=== PATIENT | female | born 1960 | race Caucasian/White ===

== ENCOUNTER → 2019-10-13 08:35 | Outpatient (CLI) | payer OTHER, SELFPAY ==
--- NOTE | 2019-10-13 13:17 | NEURO ---
NCS and/or EMG Patient Report Ordering Doctor: Karthik Hester DATE OF SERVICE: 10/13/19 Layla Bennett is a 58-year-old female presents for electrodiagnostic testing of the upper limbs. She reports progressively worsening numbness in both hands over the past 10 years. Electrodiagnostic findings: Right median motor nerve demonstrates prolonged distal latency with normal amplitude and reduced conduction velocity. Left median motor nerve demonstrates prolonged distal latency with normal amplitude and conduction velocity. There is an approximately 50% drop in median motor conduction on the right side compared to the left. Ulnar motor response is normal bilaterally. Median sensory latency at the wrist is prolonged bilaterally. Prolonged median F wave on the right side. On needle EMG, 1+ fibrillations are noted in the left first dorsal interosseous. Although the muscles tested showed no evidence of denervation with normal motor unit action potentials. Electrodiagnostic impression: This is an abnormal study in the upper limbs. 1. Electrodiagnostic findings demonstrate bilateral median mononeuropathy. This is consistent with a moderate left carpal tunnel syndrome and an advanced right carpal tunnel syndrome 2. No electrodiagnostic evidence is noted for cubital tunnel syndrome. 3. No electrodiagnostic evidence noted for cervical radiculopathy. If there are any further questions, please do not hesitate to contact me.
== END ==
PROVIDERS: PCP Student in an Organized Health Care Education/Training Program; Referring Provider Orthopaedic Surgery; Visit Provider Orthopaedic Surgery
DX: G56.01 Carpal tunnel syndrome, right upper limb (principal)
CPT/HCPCS: 95886; 95912

== ENCOUNTER → 2019-12-03 | Outpatient (CLI) | payer OTHER, SELFPAY ==
--- NOTE | 2019-12-03 16:03 | EKG12_ITS ---
Test Reason : PRE OP Blood Pressure : / mmHG Vent. Rate : 064 BPM Atrial Rate : 064 BPM P-R Int : 150 ms QRS Dur : 090 ms QT Int : 400 ms P-R-T Axes : 008 006 008 degrees QTc Int : 412 ms Normal sinus rhythm Inferior infarct , age undetermined Abnormal ECG Confirmed by BRENNA CONTRERAS, RANJEET ([id number]), acquisitions editor COLLINS HESTER ([id number]) on 12/06/2019 1:07:33 PM Referred By: Ruddy Gee Confirmed By:RANJEET CEJA MD
[2019-12-03 17:40] LABS: Hematocrit 38.6 % (37-47); Hemoglobin 13.1 g/dL (12.0-15.0); Mean Corp Hgb Conc 33.9 g/dL (32-36); Mean Corpuscular Volume 94.1 fL (81-99); Mean Platelet Vol. 10.5 fl (6.2-12.0); Platelet Count 323 K/mm3 (150-450); RBC Distribution Width CV 12.2 % (11.6-14.6); RBC Distribution Width SD 42.2 fl (35.1-43.9); White Blood Count 6.6 K/mm3 (4.4-11.0)
[2019-12-03 18:31] LABS: Anion Gap 5 (5-15); BUN 21 mg/dL (7-18); BUN/Creat Ratio 27.8 RATIO (10-20); Calcium,Total 9.1 mg/dL (8.5-10.1); Chloride 110 mmol/L (98-107); Creatinine, Serum 0.76 mg/dL (0.55-1.02); EST Glomerular Filtration Rate 83 mL/min (>60); Est Glom Filt Rate - Afr Amer 100 mL/min (>60); Glucose 101 mg/dL (74-106); Potassium 3.3 mmol/L (3.5-5.1); Sodium Level 143 mmol/L (136-145)
== END | disposition home or self-care (01) ==
LOC: LAB 16:01
PROVIDERS: PCP Student in an Organized Health Care Education/Training Program; Referring Provider Physician Assistant; Visit Provider Physician Assistant
DX: Z01.818 Encounter for other preprocedural examination (principal)
CPT/HCPCS: 36415; 80048; 85027; 93005

== ENCOUNTER 2021-04-12 11:51 | Emergency (ER) | payer OTHER, SELFPAY ==
[2021-04-12 11:52] VITALS: BP 171/90; PULSE 67; RESP 20; TEMP 36.3; O2SAT 99; BMI 39.3
[2021-04-12 12:02] VITALS: BP 171/90; PULSE 67; RESP 20; TEMP 36.3; O2SAT 99
--- NOTE | 2021-04-12 12:24 | RAD_ITS ---
STUDY: X-RAY CHEST REASON FOR EXAM: Female, 60 years old. covid, sob TECHNIQUE: Single AP portable view of the chest. COMPARISON: None. FINDINGS: The lungs are clear and expanded. There is no demonstrated pleural abnormality. Normal size heart. Normal mediastinum and kenia. Normal visualized pulmonary arteries. Normal visualized aortic arch and descending thoracic aorta. There are diffuse degenerative changes of the visualized thoracic spine. Normal visualized ribs, clavicles, and shoulders. There is no demonstrated abnormality of the visualized soft tissue structures of the upper abdomen. RAD/Chest 1 View (Portable) IMPRESSION: No acute abnormality is seen. Electronically Signed: Marc Zabala MD at 13:38 EDT , Service support ,
--- NOTE | 2021-04-12 12:25 | EDS_ITS ---
HPI History of Present Illness Chief Complaint: Shortness of Breath Associated Symptoms cough Chest Pain: Positive for None Narrative Narrative: Patient has had Covid symptoms now for 11 days, she tested +9 days ago, gradually getting worse and now a little short of breath. She saw her doctor several days ago, when she started feeling worse she was put on a azithromycin and prednisone for unknown reasons. She does not use oxygen at home and has not needed it. She has been watching her pulse oximetry at home and it has never been below 94% mostly higher 90s, as now it is 99% on room air. Her shortness of breath is not been severe. She had the Covid test at urgent care, she has history of hypertension and was not told that she was a candidate for monoclonal antibody infusion therapy. She was told today to come and get checked for blood clots. She has no history of DVT or PE, no unilateral leg pain or swelling, she has been mobile without recent hospitalization for any reason or surgery. [facility] Medical History (Updated 04/12/21 @ 14:[address] Fabrizio Mcgee MD) HTN (hypertension) Home Medications azithromycin 250 mg PO DAILY 04/12/21 [History Last Taken Unknown] methylprednisolone 4 mg PO DAILY 04/12/21 [History Last Taken Unknown] Allergy/AdvReac Type Severity Reaction Status Date / Time Unable to Assess Allergy Verified 04/12/21 11:55 Social History Smoking Status: Never smoker ROS [facility] ED Constitutional Constitutional ED: Reports body ache(s), chills, fatigue, fever(s), headache(s) and malaise Eyes Eyes: Denies change in vision or diplopia ENT ENT ED: Denies rhinorrhea or sore throat Cardiovascular Cardiovascular: Denies chest pain or palpitations Respiratory/Chest Respiratory/Chest: Reports cough, dyspnea and dyspnea on exertion Gastrointestinal Gastrointestinal: Reports diarrhea; Denies abdominal pain, nausea or vomiting Genitourinary Genitourinary ED: Denies dysuria or hematuria Musculoskeletal Musculoskeletal: Denies back pain or neck pain Integumentary Denies abscess or rash Neurologic Neurologic: Reports headache(s); Denies paresthesias or weakness Psychiatric Psychiatric: Denies anxiety or suicidal thoughts EXAM Physical Exam Const Vital Signs: 04/12/21 11:52 04/12/21 12:02 Temperature 97.4 F L 97.4 F L Temperature Source Oral Oral Pulse Rate 67 67 Respiratory Rate 20 H 20 H Blood Pressure 171/90 H 171/90 H Blood Pressure Mean 117 117 Pulse Ox 99 99 Oxygen Delivery Method Room Air Room Air Positive well nourished and well developed Constitutional Narrative: Malaised-appearing, no distress General Appearance ED: well developed and NAD HEENT Reports moist mucous membranes normocephalic and atraumatic Eyes PERRL and EOMs intact bilaterally Neck full ROM and supple Resp normal respiratory effort and clear to auscultation bilaterally Cardio regular rate, regular rhythm and no murmurs Rate: Negative for tachycardic GI non-tender and non-distended Auscultation: normoactive bowel sounds Palpation: soft Back/Spine no CVA tenderness General Back: other FROM Extremity normal to inspection and no calf tenderness General Extremety ED: Negative for edema, pulses abnormal or tenderness General Extremity: Negative for edema or pulses abnormal Neuro oriented x3, CN's II-XII intact bilaterally and no sensory deficits noted Sensorium / Orientation: awake and alert Motor Exam: strength 5/5 throughout Skin no rashes or lesions noted and no wounds MDM MDM MDM Narrative Medical decision making narrative: My recommendations are chest x-ray and supportive care, she is no longer a candidate for monoclonal antibody infusion therapy since she is beyond 10 days out from the onset of symptoms. I do not think she has likely a PE since her pulse ox is 99% on room air and she has no pleuritic chest discomfort. She really wants to make sure she does not have a PE because she knows someone who of Covid with a pulmonary embolus. She understands the risk of kidney injury which of course I will try to minimize. She wants evaluated for it so initially D-dimer was obtained along with other labs and chest x-ray confirming Covid pneumonitis. CT angiography also confirms this and there is no pulmonary embolus. Patient was reassured, advised to continue watching her pulse oximetry, other methods of supportive care are reasonable, does not meet any criteria for steroids at this time although she is already on them, nor admission. Patient is comfortable with overall plan of staying isolated at home and supportive care and watching her pulse ox. Lab Data Attestation: I reviewed the patient's lab results. Labs: Laboratory Results - last 24 hr 04/12/21 04/12/21 04/12/21 12:40 12:40 12:40 WBC 10.1 RBC 4.55 Hgb 14.4 Hct 42.5 MCV 93.4 MCH 31.6 MCHC 33.9 RDW Std Deviation 42.8 RDW Coeff of Donis 12.4 Plt Count 355 MPV 9.8 Immature Gran % (Auto) 0.600 Neut % (Auto) 76.8 H Lymph % (Auto) 14.8 L Bennett % (Auto) 7.5 Eos % (Auto) 0.0 Baso % (Auto) 0.3 Absolute Neuts (auto) 7.8 H Absolute Lymphs (auto) 1.50 Nucleated RBC % 0 D-Dimer Quant (PE/DVT) 1.12 H* Sodium 139 Potassium 3.8 Chloride 109 H Carbon Dioxide 24.0 Anion Gap 6 BUN 16 Creatinine 0.78 Estim Creat Clear Calc 59.90 Est GFR (MDRD) Af Amer 97 Est GFR (MDRD) Non-Af 80 BUN/Creatinine Ratio 20.6 H Glucose 112 H Calcium 9.2 Troponin I High Sens < 3 L Radiography Diagnostic Testing: Radiology Impression Chest X-Ray 04/12/21 12:24 IMPRESSION: No acute abnormality is seen. Electronically Signed: Marc Zabala MD at 13:38 EDT , Service support , Chest CTA 04/12/21 13:09 IMPRESSION: No evidence of pulmonary embolism. Multiple rounded alveolar infiltrates in the peripheral distribution involving both lungs suggestive of Covid pneumonitis. Electronically Signed: Marc Zabala MD at 13:50 EDT , Service support , Discharge Plan Triage Chief Complaint: Shortness of Breath ED Provider: Fabrizio Mcgee Dx/Rx/DC Orders Clinical Impression: Pneumonia due to COVID-19 virus Instructions: Coronavirus Disease 2019 (COVID-19): Caring for Yourself or Others Prescriptions: No Action azithromycin 250 mg tablet 250 mg PO DAILY RF: 0 methylprednisolone 4 mg tablets,dose pack 4 mg PO DAILY RF: 0 Primary Care Provider: Bobby Rojo Referrals: Bobby Rojo, DO [Primary Care Provider] - As Needed Activity Restrictions/Additional Instructions: Try to get a home portable pulse oximeter and closely watch her oxygen levels periodically. If you stay below 90% for more than a minute or so, and/or you are feeling like your breathing is getting worse, return to the emergency department for further evaluation. Disposition Disposition: Home, Self Care
[2021-04-12 12:47] LABS: Absolute Neutrophil Count 7.8 X10^3/uL (2.0-7.7); Basophil# 0.03 X10^3/uL; Basophil% 0.3 % (0-1); Hematocrit 42.5 % (37-47); Hemoglobin 14.4 g/dL (12.0-15.0); Lymphocyte % 14.8 % (19-41); Mean Corp Hgb Conc 33.9 g/dL (32-36); Mean Corpuscular Hgb 31.6 pg (27.0-32.0); Mean Corpuscular Volume 93.4 fL (81-99); Mean Platelet Vol. 9.8 fl (6.2-12.0); Monocyte# 0.76 X10^3/uL; Monocyte% 7.5 % (0-10); NRBC Flagged by Analyzer 0 % (0-5); Neutrophil # 7.77 X10^3/uL (2.7-7.7); Neutrophil % 76.8 % (47-70); Platelet Count 355 K/mm3 (150-450); RBC Distribution Width CV 12.4 % (11.6-14.6); RBC Distribution Width SD 42.8 fl (35.1-43.9); Red Blood Count 4.55 M/mm3 (4.2-5.4); White Blood Count 10.1 K/mm3 (4.4-11.0)
[2021-04-12 13:02] LABS: D-Dimer Quantitative (DVT/PE) 1.12 FEU/ug/m (0.27-0.49)
[2021-04-12 13:05] LABS: Anion Gap 6 (5-15); BUN 16 mg/dL (7-18); BUN/Creat Ratio 20.6 RATIO (10-20); Calcium,Total 9.2 mg/dL (8.5-10.1); Chloride 109 mmol/L (98-107); Creatinine, Serum 0.78 mg/dL (0.55-1.02); EST Glomerular Filtration Rate 80 mL/min (>60); Est Glom Filt Rate - Afr Amer 97 mL/min (>60); Glucose 112 mg/dL (74-106); Potassium 3.8 mmol/L (3.5-5.1); Sodium Level 139 mmol/L (136-145); Troponin-I HS < 3 pg/mL (3.0-54.0)
--- NOTE | 2021-04-12 13:09 | CT_ITS ---
STUDY: CTA CHEST REASON FOR EXAM: Female, 60 years old. covid, chest pain/sob, elevated d-dimer RADIATION DOSAGE (If Supplied By Facility): CTDIvol = ( 13.66 ) mGy, DLP = ( 465.63 ) mGycm TECHNIQUE: The examination was performed with the intravenous administration of IV 100mL Isovue-370. Post-processing of the angiographic images was performed, with multiplanar reformation and 3D reconstruction. Individualized dose optimization techniques were used for this CT. COMPARISON: None. FINDINGS: Normal enhancement of the main pulmonary artery and right and left pulmonary arteries. Normal enhancement of the bilateral peripheral pulmonary arteries. There is no demonstrated pulmonary embolism. Normal thoracic aorta and visualized great vessels. There is no demonstrated aortic dissection. Normal heart and pericardium. Normal mediastinum. Normal hilar regions. Normal visualized trachea and bronchi. The lungs are well expanded. There are multiple patchy rounded alveolar infiltrates in the peripheral aspects of both upper lobes. This is suggestive of early pneumonitis associated with Covid. Normal pleura. Normal chest wall structures. Normal osseous structures. Small sliding hiatal hernia. CT/CTA Chest W/WO Contrast IMPRESSION: No evidence of pulmonary embolism. Multiple rounded alveolar infiltrates in the peripheral distribution involving both lungs suggestive of Covid pneumonitis. Electronically Signed: Marc Zabala MD at 13:50 EDT , Service support ,
[2021-04-12 15:28] VITALS: BP 162/57; PULSE 82; RESP 15; O2SAT 98
== END 2021-04-12 15:29 | disposition home or self-care (01) ==
PROVIDERS: Emergency Provider Emergency Medicine; PCP Student in an Organized Health Care Education/Training Program
DX: U07.1 COVID-19 (principal); J12.82 Pneumonia due to coronavirus disease 2019; I10 Essential (primary) hypertension; Z79.52 Long term (current) use of systemic steroids; Z79.2 Long term (current) use of antibiotics
CPT/HCPCS: 71045; 71275; 80048; 84484; 85025; 85379; 99283; Q9967

== ENCOUNTER 2021-06-25 10:58 | Emergency (ER) | payer OTHER, SELFPAY ==
[2021-06-25 10:59] VITALS: BP 186/95; PULSE 66; RESP 18; TEMP 35.9; O2SAT 98; BMI 38.6
--- NOTE | 2021-06-25 12:15 | ED.VIS.GI ---
HPI HPI - GI History of Present Illness Chief Complaint: GI Bleed Informant: patient Abdominal Pain/Flank Pain Onset: - (No pain, just diarrhea with blood) Worsened by: Nothing Relieved by: Nothing Nausea/Vomiting/Emesis GI Symptom: Negative for Nausea and Vomiting Diarrhea/Melena/Hematochezia GI Symptom: Positive for Diarrhea and Hematochezia; Negative for Melena Onset: Days (2 days of bloody diarrhea) Stool Quality: Positive for Watery Severity: Moderate Associated Symptoms Associated Symptoms: Negative for Dysuria, Frequency, Hematuria and Urgency Narrative Narrative: Patient had Covid in March and ever since she has had diarrhea 5-10 bouts per day that has been watery, for the past 3 days it has also been bloody. She has felt tired since March that is no different. She denies any syncope or presyncopal symptoms or orthostatic symptoms. She has contracted a cold in the last 2 or 3 days that multiple grandchildren have as well, she was in contact with him, she has been hoarse, nonproductive cough, and a mildly sore throat without fevers, chills, or dyspnea. The grandchildren have not been tested for Covid, their mother is a nurse here at the hospital with there has been lots of inpatient Covid. She has had no testing on the diarrhea so far. She was not vaccinated against Covid. When she called her doctor's office regarding the symptoms she was sent to the ER for further evaluation. [facility] Medical History HTN (hypertension) Home Medications albuterol sulfate [Ventolin HFA] 1 - 2 puff INHALATION Q4H PRN PRN #1 inhaler 04/12/21 [Rx Last Taken Unknown] azithromycin 250 mg PO DAILY 04/12/21 [History Last Taken Unknown] methylprednisolone 4 mg PO DAILY 04/12/21 [History Last Taken Unknown] Allergy/AdvReac Type Severity Reaction Status Date / Time No Known Allergies Allergy Verified 06/25/21 10:58 Social History Smoking Status: Never smoker ROS ROS ED Constitutional Constitutional ED: Reports anorexia, fatigue and other Details: Anorexia due to food making the diarrhea worse so she is trying to avoid food but drinking fluids well. ; Denies chills or fever(s) Eyes Eyes: Denies change in vision or diplopia ENT ENT ED: Reports hoarseness, nasal congestion, rhinorrhea and sore throat; Denies loss taste/smell Cardiovascular Cardiovascular: Denies chest pain or palpitations Respiratory/Chest Respiratory/Chest: Reports cough; Denies dyspnea Gastrointestinal Gastrointestinal: Reports diarrhea; Denies abdominal pain, nausea or vomiting Genitourinary Genitourinary ED: Denies dysuria or hematuria Musculoskeletal Musculoskeletal: Denies back pain or neck pain Integumentary Denies abscess or rash Neurologic Neurologic: Denies headache(s), paresthesias or weakness Psychiatric Psychiatric: Denies anxiety or suicidal thoughts EXAM Physical Exam Const Vital Signs: 06/25/21 10:59 Temperature 96.7 F L Temperature Source Temporal Pulse Rate 66 Respiratory Rate 18 Blood Pressure 186/95 H Blood Pressure Mean 125 Pulse Ox 98 Oxygen Delivery Method Room Air Positive well nourished and well developed General Appearance ED: well developed and NAD HEENT Reports moist mucous membranes normocephalic and atraumatic Eyes PERRL and EOMs intact bilaterally Neck full ROM and supple Resp normal respiratory effort and clear to auscultation bilaterally Cardio regular rate, regular rhythm and no murmurs GI non-tender and non-distended Auscultation: normoactive bowel sounds Palpation: soft Back/Spine no CVA tenderness General Back: other FROM Extremity normal to inspection General Extremety ED: Negative for edema, pulses abnormal or tenderness General Extremity: Negative for edema or pulses abnormal Neuro oriented x3, CN's II-XII intact bilaterally and no sensory deficits noted Sensorium / Orientation: awake and alert Motor Exam: strength 5/5 throughout Skin no rashes or lesions noted and no wounds MDM MDM MDM Narrative Medical decision making narrative: Patient's labs are all normal. She was given a liter of IV fluid, she did not develop any abdominal pain or have any further bleeding here in emergency department. She was given water and crackers to eat/drink, and she still had no diarrhea to provide for testing. She does not want to wait any longer and would prefer to go home and do the testing as an outpatient which I am okay with. Hemoglobin is stable, hemodynamics are stable except she is actually hypertensive, she tested negative for Covid. At this time I would hold off on antidiarrheals until we rule out bacterial etiologies now that she has rectal bleeding with it, and if her enteric panel and C. difficile are negative she may then likely safely do antidiarrheals. 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 I would also recommend close outpatient follow-up with her doctor regarding the testing and gastroenterology regarding the bleeding, she may need sigmoidoscopy/colonoscopy in follow-up. We discussed reasons to return she is comfortable with the plan. Lab Data Attestation: I reviewed the patient's lab results. Labs: Laboratory Results - last 24 hr 06/25/21 06/25/21 12:35 12:35 WBC 7.7 RBC 4.14 L Hgb 13.1 Hct 40.1 MCV 96.9 MCH 31.6 MCHC 32.7 RDW Std Deviation 45.6 H RDW Coeff of Donis 12.6 Plt Count 433 MPV 9.6 Immature Gran % (Auto) 0.400 Neut % (Auto) 61.6 Lymph % (Auto) 21.9 [place] % (Auto) 11.0 H Eos % (Auto) 4.5 Baso % (Auto) 0.6 Absolute Neuts (auto) 4.7 Absolute Lymphs (auto) 1.69 Nucleated RBC % 0 Sodium 140 Potassium 3.9 Chloride 104 Carbon Dioxide 29.0 Anion Gap 7 BUN 11 Creatinine 0.78 Estim Creat Clear Calc 59.90 Est GFR (MDRD) Af Amer 97 Est GFR (MDRD) Non-Af 80 BUN/Creatinine Ratio 14.2 Glucose 93 Calcium 9.8 Total Bilirubin 0.30 AST 12 L ALT 15 Alkaline Phosphatase 83 Total Protein 8.2 Albumin 3.1 L Globulin 5.1 H Albumin/Globulin Ratio 0.6 L Discharge Plan Triage Chief Complaint: GI Bleed ED Provider: Fabrizio Mcgee Dx/Rx/DC Orders Clinical Impression: Bloody diarrhea, 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 Fabrizio Mcgee ENTERIC PATHOGEN PANEL STOOL (Routine) Timeframe: 2 Days Facility: [facility] - Location: Laboratory Ordered By: Dr. Fabrizio Mcgee Primary Care Provider: Bobby Rojo Referrals: Bobby Rojo DO [Primary Care Provider] - (2-5 days, after providing outpt stool specimen for testing) Andrea Watt DO [STAFF PHYSICIAN] - (call for appt) Disposition Disposition: Home, Self Care
[2021-06-25 12:48] LABS: Absolute Lymphocyte Count 1.69 X10^3/uL (0.83-4.51); Absolute Neutrophil Count 4.7 X10^3/uL (2.0-7.7); Basophil# 0.05 X10^3/uL; Basophil% 0.6 % (0-1); Eosinophil# 0.35 X10^3/uL; Eosinophils% 4.5 % (0-5); Hematocrit 40.1 % (37-47); Hemoglobin 13.1 g/dL (12.0-15.0); Lymphocyte # 1.69 X10^3/ul (0.83-4.51); Lymphocyte % 21.9 % (19-41); Mean Corp Hgb Conc 32.7 g/dL (32-36); Mean Corpuscular Hgb 31.6 pg (27.0-32.0); Mean Corpuscular Volume 96.9 fL (81-99); Mean Platelet Vol. 9.6 fl (6.2-12.0); Monocyte# 0.85 X10^3/uL; NRBC Flagged by Analyzer 0 % (0-5); Neutrophil # 4.73 X10^3/uL (2.7-7.7); Neutrophil % 61.6 % (47-70); Platelet Count 433 K/mm3 (150-450); RBC Distribution Width CV 12.6 % (11.6-14.6); RBC Distribution Width SD 45.6 fl (35.1-43.9); Red Blood Count 4.14 M/mm3 (4.2-5.4); White Blood Count 7.7 K/mm3 (4.4-11.0)
[2021-06-25 13:15] LABS: ALB/GLOB Ratio 0.6 RATIO (0.9-2.4); AST(SGOT) 12 U/L (15-37); Alanine Aminotransfer ALT/SGPT 15 U/L (13-56); Albumin, Serum 3.1 g/dL (3.2-5.0); Alkaline Phosphatase 83 U/L (45-117); Anion Gap 7 (5-15); BUN 11 mg/dL (7-18); BUN/Creat Ratio 14.2 RATIO (10-20); Calcium,Total 9.8 mg/dL (8.5-10.1); Chloride 104 mmol/L (98-107); Creatinine, Serum 0.78 mg/dL (0.55-1.02); EST Glomerular Filtration Rate 80 mL/min (>60); Est Glom Filt Rate - Afr Amer 97 mL/min (>60); Globulin 5.1 g/dL (2.2-4.2); Glucose 93 mg/dL (74-106); Potassium 3.9 mmol/L (3.5-5.1); Protein, Total 8.2 g/dL (6.4-8.2); Sodium Level 140 mmol/L (136-145)
== END 2021-06-25 15:31 | disposition home or self-care (01) ==
PROVIDERS: Emergency Provider Emergency Medicine; PCP Student in an Organized Health Care Education/Training Program
DX: A08.8 Other specified intestinal infections (principal); R53.82 Chronic fatigue, unspecified; U09.9 Post COVID-19 condition, unspecified; I10 Essential (primary) hypertension; Z79.899 Other long term (current) drug therapy
CPT/HCPCS: 80053; 85025; 87426; 87493; 87506; 99283; A4216

== ENCOUNTER 2021-09-19 07:24 | Day surgery (SDC) | payer OTHER, SELFPAY ==
[2021-09-19] VITALS (7 sets, daily range): BP systolic 100–159; BP diastolic 64–85; PULSE 60–74; RESP 16–18; TEMP 35.9–36.6; O2SAT 96–99; BMI 36.6
[2021-09-19] MEDS: Lactated Ringers 1,000 ML 15 ML IV (07:50)
--- NOTE | 2021-09-19 08:30 | COLBX_PTH ---
PATIENT: ARMANI LAINEZ LOC: EN U#:[id number] AGE/SX: 60/F ROOM: RE09/19/[address]: Dr. Andrea Watt DO : 1960 BED: DIS: 09/19/2021 SPEC #: [id number] RECD: 09/19/21 09:45 STATUS: PIPPA CORBIN #: [id number] CALIN: 09/19/21 08:[address]: Andrea Watt DEPT: SURGICAL PATHOLOGY RECD BY: Ismael Ruiz ENTERED: 09/19/21 11:04 SP TYPE: COLON BX OTHR DR: Dr. Bobby Rojo DO Tissues: A - Duodenum, NOS B - Esophagus, NOS C - Ileum, NOS D - COLON BIOPSY Procedures: Special Stain Group II Surgery Specimen Level IV Alcian Blue/PAS (control) HEADER OPERATION: Colonoscopy, EGD ([facility] [place] PRE-OP DIAGNOSIS: Diarrhea TISSUE SUBMITTED: A ? Duodenum biopsy, B ? Random esophagus biopsy, C ? Terminal ileum biopsy, D ? Random colonic biopsy MICROSCOPIC DIAGNOSIS A. Duodenum, biopsy: Fragments of small intestinal mucosa with mild congestion. B. Esophagus, random biopsy: Fragments of squamous epithelium with minimal chronic inflammation and congestion. 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 C. Terminal ileum, biopsy: Fragments of small intestinal mucosa, no pathologic diagnosis. D. Colon, random biopsy: Moderate chronic active colitis. See microscopic description and comment. COMMENT B. Alcian blue/PAS stain with matched control is used in the evaluation of the specimen. Increased number of eosinophils consistent with eosinophilic esophagitis are not seen. D. Correlation with clinical, endoscopic findings and appropriate follow up are necessary. MICROSCOPIC DESCRIPTION Slides are reviewed. D. The specimen shows fragments of colonic mucosa with moderate acute and chronic inflammatory cell infiltrates in the lamina propria, lymphoid aggregates, mild glandular distortion, cryptitis and crypt abscesses. Granulomas are not seen. No evidence of dysplasia. GROSS DESCRIPTION A - Received in fixative is one container labeled with the patient's name and designated duodenum biopsy. The specimen consists of multiple irregular fragments of light byers soft tissue that in aggregate measure 1 x 0.2 x 0.1 cm. The specimen is totally submitted in one cassette. B - Received in fixative is one container labeled with the patient's name and designated random esophagus biopsy. The specimen consists of multiple irregular fragments of light byers soft tissue that in aggregate measure 0.8 x 0.2 x 0.1 cm. The specimen is totally submitted in one cassette. C - Received in fixative is one container labeled with the patient's name and designated terminal ileum biopsy. The specimen consists of multiple irregular fragments of light byers soft tissue that in aggregate measure 1 x 0.5 x 0.1 cm. The specimen is totally submitted in one cassette. D - Received in fixative is one container labeled with the patient's name and designated random colonic biopsy. The specimen consists of multiple irregular fragments of light byers soft tissue that in aggregate measure 1.3 x 1 x 0.1 cm. The specimen is totally submitted in one cassette. / SJ:rg 09/19/2021 TC:2 CPT: 34594 x4, [id number]
--- NOTE | 2021-09-19 08:42 | HP.PCM_ITS ---
History and Physical Date of Admission: 09/19/21 60 F who presents to the office today for evaluation of the area with urgency. Recently she has been developing worsening lower GI bleeding with diarrhea. She has no family history of inflammatory bowel disease. She has no other rheumatologic diseases. Previously she she had episodes of constipation. None none none Seen in [facility] ED 06/25/21 for diarrhea. Onset March following COVID infection. 5-10 episodes a day of watery diarrhea that has included blood in the last 3 days. Provided with IVF. Discouraged use of antidiarrheals until stool testing could be done to r/o bacterial infection. COVID testing negative. Stool testing performed 06/25/21 with negative findings. Prior to COVID she was having issues with constipation and required apple juice and prunes to promote BM. Following COVID infection with onset of watery diarrhea she stopped her bowel regimen. Reports several BM each hour with urgency with incontinence. Left sided cramping prior to BM, denies pain. Blood has stopped since ED visit but is now orange colored. Reports being healthy otherwise. ROS Const Constitutional: Positive for fatigue and weight change Gastro GI: Positive for change in bowel habits, constipation, cramping, diarrhea and nausea/dyspepsia Musc Musculoskeletal: Positive for muscle cramps Endo Endocrine: Positive for fatigue and weight change Exam Const General: cooperative and comfortable Nutritional Appearance: average body habitus and well nourished HENMT Head: normal to inspection Ears: hearing grossly normal bilaterally Nose: external nose normal Face and sinus: normal facial exam Mouth: oral mucosae normal Throat: posterior oropharynx normal Eyes General: appearance normal, both eyes and all related structures Neck Neck: normal visual inspection Chest Chest palpation & inspection: normal inspection of the chest and normal palpation of entire chest wall Resp Effort & Inspection: normal respiratory effort Auscultation: Bilateral: Clear to Auscultation Cardio Palpation: normal PMI Rate: regular rate Rhythm: regular rhythm GI Inspection: normal to inspection Auscultation: normal bowel sounds Percussion: normal to percussion Palpation: no hepatosplenomegaly Skin General: no rashes or lesions noted Neuro General: patient alert Extrem General: normal to inspection Psych Affect: normal affect Quality Reporting Tobacco Screening ([facility] 138) Smoking Status: Never smoker Assessment and Plan Assessment and Plan (1) Diarrhea: Status: Acute Plan - Dr. Mendez Friend, DO: The differential diagnosis for diarrhea could be postinfectious diarrhea. Also the diagnosis with the lower GI bleeding could be ischemic colitis. This could also be upper GI bleed with rapid transit. We discussed the possibilities of inflammatory bowel disease. I am hesitant to start her on steroids at this time due to recent Covid infection. Her stool studies were negative which is good. However fecal lactoferrin was not done. I will give her Lomotil 2 tabs in morning 2 tabs at night. I discussed with her the possibility of constipation. If she gets constipated she is to call me and I can make adjustments. She will undergo an upper lower endoscopy the she was explained alternatives, risk, benefits including not withstanding bleeding, infection, sepsis, perforation, need for emergent surgery . She will have an ASA of 1. Plan Details Other Medications: New: diphenoxylate-atropine 2.5-0.025 mg (Lomotil) 2 tabs PO BID 14 days PRN 56 tabs 0RF diarrhea I have re-examined the patient. There are no clinical changes since date of exam.
--- NOTE | 2021-09-19 09:06 | OP.CCLET_ITS ---
04/17/2022 Bobby Rojo [address] [place] [address] Re : Upper GI endoscopy procedure for Layla Bennett Dear Dr. Rojo This procedure was performed on Sunday, September 19, 2021. My impressions and recommendations are as follows: Impressions : - Esophageal mucosal changes consistent with eosinophilic esophagitis. Biopsied. - Normal stomach. - Erythematous duodenopathy. Biopsied. Recommendations : - Written discharge instructions were provided to the patient. - The signs and symptoms of potential delayed complications were discussed with the patient. - Patient has a contact number available for emergencies. - Return to normal activities tomorrow. - Resume previous diet. - Continue present medications. - Await pathology results. - Await pathology results. My findings are described in the full procedure note, which is enclosed. If I can be of further assistance, please feel free to contact me at . Sincerely, Andrea Watt, 09/19/2021 9:05:47 AM This report has been signed electronically.
--- NOTE | 2021-09-19 09:06 | OP.EGD_ITS ---
Patient Name: Layla Bennett Procedure Date: 09/19/2021 8:46 AM Date of : 1960 Age: 60 Procedure: Upper GI endoscopy Indications: Epigastric abdominal pain Providers: Andrea Watt DO Referring MD: Andrea Watt DO Medicines: See the Anesthesia note for documentation of the administered medications Patient Profile: This is a 60 year old female. Refer to note in patient chart for documentation of history and physical. Patient has symptoms of acute abdominal cramping and chronic abdominal cramping. Complications: No immediate complications. Procedure: Pre-Anesthesia Assessment: - Prior to the procedure, a History and Physical was performed, and patient medications and allergies were reviewed. The patient is competent. The risks and benefits of the procedure and the sedation options and risks were discussed with the patient. All questions were answered and informed consent was obtained. Patient identification and proposed procedure were verified by the physician in the pre-procedure area. Mental Status Examination: alert and oriented. Airway Examination: normal oropharyngeal airway and neck mobility. Respiratory Examination: clear to auscultation. CV Examination: normal. Prophylactic Antibiotics: The patient does not require prophylactic antibiotics. Prior Anticoagulants: The patient has taken no previous anticoagulant or antiplatelet agents. After reviewing the risks and benefits, the patient was deemed in satisfactory condition to undergo the procedure. The anesthesia plan was to use moderate sedation / analgesia (conscious sedation). Immediately prior to administration of medications, the patient was re-assessed for adequacy to receive sedatives. The heart rate, respiratory rate, oxygen saturations, blood pressure, adequacy of pulmonary ventilation, and response to care were monitored throughout the procedure. The physical status of the patient was re-assessed after the procedure. After obtaining informed consent, the endoscope was passed under direct vision. Throughout the procedure, the patient's blood pressure, pulse, and oxygen saturations were monitored continuously. The pediatric colonoscope was introduced through the mouth, and advanced to the second part of duodenum. The upper GI endoscopy was accomplished without difficulty. The patient tolerated the procedure well. Moderate Sedation: Moderate (conscious) sedation was administered by the endoscopy nurse and supervised by the endoscopist. The following parameters were monitored: oxygen saturation, heart rate, blood pressure, and response to care. Total physician intraservice time was 15 minutes. Scope In: 8:56:48 AM Scope Out: 9:02:27 AM Total Procedure Duration Time 0 hours 5 minutes 39 seconds Findings: Mucosal changes including ringed esophagus were found in the middle third of the esophagus. Esophageal findings were graded using the Eosinophilic Esophagitis Endoscopic Reference Score (EoE-EREFS) as: Edema Grade 0 Normal (distinct vascular markings), Rings Grade 2 Moderate (distinct rings that do not occlude passage of diagnostic 8-10 mm endoscope), Exudates Grade 0 None (no white lesions seen), Furrows Grade 0 None (no vertical lines seen) and Stricture none (no stricture found). Biopsies were obtained from the proximal and distal esophagus with cold forceps for histology of suspected eosinophilic esophagitis. Verification of patient identification for the specimen was done. Estimated blood loss was minimal. The entire examined stomach was normal. Patchy mildly erythematous mucosa without active bleeding and with no stigmata of bleeding was found in the first portion of the duodenum. Biopsies were taken with a cold forceps for histology. Estimated blood loss: none. Impression: - Esophageal mucosal changes consistent with eosinophilic esophagitis. Biopsied. - Normal stomach. - Erythematous duodenopathy. Biopsied. Recommendation: - Written discharge instructions were provided to the patient. - The signs and symptoms of potential delayed complications were discussed with the patient. - Patient has a contact number available for emergencies. - Return to normal activities tomorrow. - Resume previous diet. - Continue present medications. - Await pathology results. - Await pathology results. Procedure Code(s): --- Professional --- 35458, Esophagogastroduodenoscopy, flexible, transoral; with biopsy, single or multiple 06661, 59, Moderate sedation services provided by the same physician or other qualified health care team coordinator scheduler performing the diagnostic or therapeutic service that the sedation supports, requiring the presence of an independent trained observer to assist in the monitoring of the patient's level of consciousness and physiological status; initial 15 minutes of intraservice time, patient age 5 years or older CPT copyright 2017 [employer]. All rights reserved. The codes documented in this report are preliminary and upon ocean clam boat captain review may be revised to meet current compliance requirements. Andrea Watt DO 09/19/2021 9:05:47 AM This report has been signed electronically. Number of Addenda: 1 Note Initiated On: 09/19/2021 8:46 AM Addendum Number: 1 Addendum Date: 04/17/2022 6:40:54 AM MAC was used as sedation for this procedure. Andrea Watt, 04/17/2022 6:41:00 AM This report has been signed electronically.
--- NOTE | 2021-09-19 09:36 | OP.COLON_ITS ---
Patient Name: Layla Bennett Procedure Date: 09/19/2021 9:03 AM Date of : 1960 Age: 60 Procedure: Colonoscopy Indications: Clinically significant diarrhea of unexplained origin Providers: Andrea Watt DO Referring MD: Andrea Watt DO Medicines: See the Anesthesia note for documentation of the administered medications Patient Profile: This is a 60 year old female. Refer to note in patient chart for documentation of history and physical. Patient has symptoms of acute abdominal cramping and chronic abdominal cramping. Last Colonoscopy: date unknown. Unable to locate last colonoscopy report. Complications: No immediate complications. Procedure: Pre-Anesthesia Assessment: - Prior to the procedure, a History and Physical was performed, and patient medications and allergies were reviewed. The patient is competent. The risks and benefits of the procedure and the sedation options and risks were discussed with the patient. All questions were answered and informed consent was obtained. Patient identification and proposed procedure were verified by the physician in the pre-procedure area. Mental Status Examination: alert and oriented. Airway Examination: normal oropharyngeal airway and neck mobility. Respiratory Examination: clear to auscultation. CV Examination: normal. Prophylactic Antibiotics: The patient does not require prophylactic antibiotics. Prior Anticoagulants: The patient has taken no previous anticoagulant or antiplatelet agents. After reviewing the risks and benefits, the patient was deemed in satisfactory condition to undergo the procedure. The anesthesia plan was to use moderate sedation / analgesia (conscious sedation). Immediately prior to administration of medications, the patient was re-assessed for adequacy to receive sedatives. The heart rate, respiratory rate, oxygen saturations, blood pressure, adequacy of pulmonary ventilation, and response to care were monitored throughout the procedure. The physical status of the patient was re-assessed after the procedure. After I obtained informed consent, the scope was passed under direct vision. Throughout the procedure, the patient's blood pressure, pulse, and oxygen saturations were monitored continuously. The pediatric colonoscope was introduced through the anus and advanced to the terminal ileum. The colonoscopy was performed without difficulty. The patient tolerated the procedure well. The quality of the bowel preparation was good. Moderate Sedation: Moderate (conscious) sedation was administered by the endoscopy nurse and supervised by the endoscopist. The patient's oxygen saturation, heart rate, blood pressure and response to care were monitored. Total physician intraservice time was 15 minutes. Scope In: 9:07:39 AM Scope Withdrawal Time 0 hours 12 minutes 7 seconds Scope Out: 9:27:35 AM Total Procedure Duration Time 0 hours 19 minutes 56 seconds Findings: The perianal and digital rectal examinations were normal. A patchy area of moderately erythematous mucosa was found in the recto-sigmoid colon, in the sigmoid colon, in the descending colon, at the splenic flexure and at the hepatic flexure. Biopsies were taken with a cold forceps for histology. Verification of patient identification for the specimen was done. Estimated blood loss was minimal. A patchy area of the terminal ileum was congested. Verification of patient identification for the specimen was done. Estimated blood loss was minimal. A few small-mouthed diverticula were found in the recto-sigmoid colon and sigmoid colon. Impression: - Erythematous mucosa in the recto-sigmoid colon, in the sigmoid colon, in the descending colon, at the splenic flexure and at the hepatic flexure. Biopsied. - Congested mucosa in the terminal ileum. - Diverticulosis in the recto-sigmoid colon and in the sigmoid colon. Recommendation: - Discharge patient to home. - Resume previous diet. - Continue present medications. - Await pathology results. - Repeat colonoscopy in 5 years for surveillance based on pathology results. - Return to GI office. Procedure Code(s): --- Professional --- 25742, Colonoscopy, flexible; with biopsy, single or multiple 30403, 59, Moderate sedation services provided by the same physician or other qualified health patient care technician instructor performing the diagnostic or therapeutic service that the sedation supports, requiring the presence of an independent trained observer to assist in the monitoring of the patient's level of consciousness and physiological status; initial 15 minutes of intraservice time, patient age 5 years or older CPT copyright 2017 [employer]. All rights reserved. The codes documented in this report are preliminary and upon hospital coder review may be revised to meet current compliance requirements. Andrea Watt DO 09/19/2021 9:35:24 AM This report has been signed electronically. Number of Addenda: 1 Note Initiated On: 09/19/2021 9:03 AM Addendum Number: 1 Addendum Date: 04/17/2022 6:41:09 AM MAC was used as sedation for this procedure. Andrea Watt DO 04/17/2022 6:41:12 AM This report has been signed electronically.
--- NOTE | 2021-09-19 09:37 | OP.CCLET_ITS ---
04/17/2022 Bobby Rojo [address] [place] [address] Re : Colonoscopy procedure for Layla Bennett Dear Dr. Rojo This procedure was performed on Sunday, September 19, 2021. My impressions and recommendations are as follows: Impressions : - Erythematous mucosa in the recto-sigmoid colon, in the sigmoid colon, in the descending colon, at the splenic flexure and at the hepatic flexure. Biopsied. - Congested mucosa in the terminal ileum. - Diverticulosis in the recto-sigmoid colon and in the sigmoid colon. Recommendations : - Discharge patient to home. - Resume previous diet. - Continue present medications. - Await pathology results. - Repeat colonoscopy in 5 years for surveillance based on pathology results. - Return to GI office. My findings are described in the full procedure note, which is enclosed. If I can be of further assistance, please feel free to contact me at . Sincerely, Andrea Watt DO 09/19/2021 9:35:24 AM This report has been signed electronically.
== END 2021-09-19 23:59 | disposition home or self-care (01) ==
LOC: EN 07:26 → AC 07:26
PROVIDERS: PCP Student in an Organized Health Care Education/Training Program; Referring Provider Internal Medicine Gastroenterology; Visit Provider Internal Medicine Gastroenterology
PROC: 0DJD8ZZ Inspection of Lower Intestinal Tract, Via Natural or Artificial Opening Endoscopic (ICD-10-PCS; CPT 45378; principal; 2021-09-19 08:25)
DX: K20.0 Eosinophilic esophagitis (principal); K57.30 Diverticulosis of large intestine without perforation or abscess without bleeding; K63.89 Other specified diseases of intestine; R19.7 Diarrhea, unspecified; R10.13 Epigastric pain; Z86.16 Personal history of COVID-19
CPT/HCPCS: 45380; 43239; 87426; 88305; 88313; C9803; J7120; J2405

== ENCOUNTER 2022-10-14 08:54 | Day surgery (SDC) | payer OTHER, SELFPAY ==
[2022-10-14] VITALS (8 sets, daily range): BP systolic 80–151; BP diastolic 47–85; PULSE 52–68; RESP 15–18; TEMP 36.1–36.6; O2SAT 92–100; BMI 41.9
[2022-10-14] MEDS: Lactated Ringers 1,000 ML 15 ML IV (09:27)
--- NOTE | 2022-10-14 09:55 | PCM.HP.STD ---
[facility] - General General Date of Admission: 10/14/22 Date of Service: 10/14/22 Chief Complaint: Dysphagia HPI Narrative ARMANI LAINEZ, is a 61 F who presents for evaluation of eosinophilic esophagitis. She had a previous endoscopy that showed multiple esophageal rings, furrowing and other mucosal changes consistent with eosinophilic esophagitis. Biopsies that showed eosinophilic esophagitis and some focal intestinal metaplasia in the distal esophagus. She comes back in for evaluation of dysphagia. This is mostly with solids. She is not have any abdominal pain. She denied any cramping. She not have any chest pain or shortness of breath. [facility] Medical History (Updated 10/14/22 @ 09:[address] Mendez Friend, DO) Arthritis COVID Diarrhea History of GI bleed History of IBS History of steroid therapy HTN (hypertension) Injury of head and neck Migraine headache Non-smoker Post-menopausal Wears glasses Home Medications bisacodyl 5 mg tablet,delayed release 5 mg PO ONCE #4 tabs 07/11/21 [Rx Last Taken Unknown] propranolol 20 mg tablet 20 mg PO BID 07/11/21 [History Last Taken 10/14/22 06:00] albuterol sulfate 90 mcg/actuation aerosol inhaler 1 - 2 puff inhalation PRN PRN SOB 08/07/21 [History Last Taken Unknown] multivitamin 1 tab PO DAILY 08/07/21 [History Last Taken Unknown] Allergy/AdvReac Type Severity Reaction Status Date / Time No Known Allergies Allergy Verified 10/14/22 09:08 Surgical History History of carpal tunnel surgery of right wrist Hx of colonoscopy Social History Smoking Status: Never smoker ROS Review of Systems ROS Unobtainable: other Constitutional Constitutional: Denies fatigue, fever(s), poor appetite, weight gain or weight loss ENT HEENT: Denies mouth lesions Cardiovascular Cardiovascular: Denies abdominal bloating, abdominal edema or abdominal pain Respiratory/Chest Respiratory/Chest: Denies change in mental status, change in phlegm color, chest congestion or chest tightness Gastrointestinal Gastrointestinal: Denies belching, bloating, change in bowel habits, change in stool character, chewing difficulty, coffee ground emesis, constipation, cramping, diarrhea, dyspepsia, dysphagia, early satiety, excessive flatus, fecal incontinence, heartburn, hematemesis, hematochezia, hemorrhoids, loose stools, melena, nausea, odynophagia, rectal bleeding, tenesmus, vomiting or weight changes Genitourinary Genitourinary: Denies abdominal discomfort, burning urination or itching Musculoskeletal Musculoskeletal: Reports as per HPI; Denies muscle weakness or myalgias Integumentary Integumentary: Denies jaundice Neurologic Neurologic: Denies lack of coordination or weakness Psychiatric Psychiatric: Denies confusion, depression, memory loss, mood swings, paranoia or suicidal ideation Endocrine Endocrinology: Denies systems reviewed and no addt'l complaints, except as documented Hematologic/Lymphatic Hematologic/Lymphatic: Denies anemia, easy bleeding, easy bruising or lymphadenopathy Allergic/Immunologic Allergic/Immunologic: Denies systems reviewed and no addt'l complaints, except as documented Vital Signs Vital Signs Vital Signs: 10/14/22 09:09 10/14/22 09:09 Temperature 97.0 F L Temperature Source Temporal Pulse Rate 64 Respiratory Rate 16 Respiratory Pattern Normal Blood Pressure 151/85 H Blood Pressure Mean 107 Blood Pressure Source Monitor Blood Pressure Position Semi-Fowlers Blood Pressure Location Left Arm Pulse Ox 100 Oxygen Delivery Method Room Air Weight Weight: 229 lb 4.492 oz Body Mass Index (BMI) 41.9 Physical Exam Const alert, oriented x3, no apparent distress, healthy appearing and well nourished General Appearance: cooperative, comfortable, well kempt and well developed Orientation / Consciousness: awake and oriented to person HEENT Head and Scalp: normocephalic and atraumatic Face and Sinus: normal facial exam Mouth: oral and palatal mucosa normal Eyes General Eye: normal appearance of both eyes Neck full ROM Lymph Lymphatic: no lymphadenopathy noted Chest inspection of chest normal Resp normal respiratory effort and no use of accessory muscles Cardio regular rate and regular rhythm GI normal to inspection, nondistended, normoactive bowel sounds, soft to palpation, non-tender, non-distended and no masses Auscultation: normoactive bowel sounds Palpation: soft Percussion: normal to percussion Rectal Exam: visual inspection normal and normal sphincter tone no CVA tenderness Back/Spine no CVA tenderness and normal ROM Extremity normal to inspection Peripheral Pulses: Yes pulses 2+ throughout Skin no rashes or lesions noted General Skin Exam: no breakdown, elasticity normal and turgor normal Neuro oriented x3 Motor Exam: strength 5/5 throughout Psych mental status grossly normal Appearance: grossly normal Attitude: calm Activity / Motor Behavior: appropriate eye contact Speech: normal speech Thought Process: normal thought process Thought Content: normal thought content Attention / Concentration: attention grossly intact Memory / Cognition: memory grossly intact Insight: insight good Judgement: judgement good Assessment & Plan Assessment/Plan (1) Barretts esophagus: (2) Eosinophilic esophagitis: PLAN: Plan She will undergo evaluation of the upper GI tract. She was explained alternatives, risk, benefits including not withstanding bleeding, infection, sepsis, perforation, need for emergent urgent . She have an ASA of 2.
--- NOTE | 2022-10-14 10:00 | COLBX_PTH ---
PATIENT: ARMANI LAINEZ LOC: EN U#:[id number] AGE/SX: 61/F ROOM: RE10/14/[address]: Dr. Andrea Watt DO : 1960 BED: DIS: 10/14/2022 SPEC #: [id number] RECD: 10/14/22 11:35 STATUS: PIPPA CORBIN #: [id number] CALIN: 10/14/22 10:[address]: Andrea Watt DEPT: SURGICAL PATHOLOGY RECD BY: Ismael Ruiz ENTERED: 10/14/22 12:05 SP TYPE: COLON BX OTHR DR: Dr. Bobby Rojo DO Tissues: A - Esophagus, NOS B - Ileum, NOS C - COLON BIOPSY Procedures: Special Stain Group II Surgery Specimen Level IV Alcian Blue/PAS (control) HEADER OPERATION: Colonoscopy, EGD (MAC), biopsy PRE-OP DIAGNOSIS: Pat?s esophagus, eosinophilic esophagitis TISSUE SUBMITTED: A ? Distal esophagus biopsy, B ? Terminal ileum biopsy, C ? Random colonic biopsy MICROSCOPIC DIAGNOSIS A. Distal esophagus, biopsy: Gastroesophageal junctional mucosa with mild chronic inflammation. No evidence of goblet cell metaplasia. See comment. B. Terminal ileum, biopsy: No pathologic change. C. Colon, random biopsy: Chronic active colitis pattern of injury. See comment. AM:[email or web address] 10/15/2022 COMMENT A. Alcian blue/PAS stain with matched control supports the above diagnosis. C. Sections show glandular distortion, expansion of lamina propria by inflammatory cells, cryptitis and focal crypt abscesses. Fissuring ulcers and transmural lymphoid aggregates are not identified. Clinical correlation is suggested. MICROSCOPIC DESCRIPTION Slides are reviewed. GROSS DESCRIPTION A - Received in fixative is one container labeled with the patient's name and designated distal esophagus biopsy. The specimen consists of multiple irregular fragments of light byers soft tissue that in aggregate measure 1.0 x 0.3 x 0.1 cm. The specimen is totally submitted in one cassette. B -Received in fixative is one container labeled with the patient's name and designated terminal ileum biopsy. The specimen consists of two irregular fragments of light byers soft tissue that in aggregate measure 0.6 x 0.3 x 0.1 cm. The specimen is totally submitted in one cassette. C - Received in fixative is one container labeled with the patient's name and designated random colonic biopsy. The specimen consists of multiple irregular fragments of light byers soft tissue that in aggregate measure 2.5 x 0.3 x 0.1 cm. The specimen is totally submitted in one cassette. / SJ:[email or web address] 10/14/2022 TC:2 CPT: 43415 x3, 68370
--- NOTE | 2022-10-14 10:29 | OP.COLON_ITS ---
Patient Name: Layla Bennett Procedure Date: 10/14/2022 10:10 AM Date of : 1960 Age: 61 Procedure: Colonoscopy Indications: Left-sided chronic ulcerative colitis Providers: Andrea Watt DO Referring MD: Andrea Watt DO Medicines: Monitored Anesthesia Care Patient Profile: This is a 61 year old female. Refer to note in patient chart for documentation of history and physical. Last Colonoscopy: within the past 3 years. Complications: No immediate complications. Procedure: Pre-Anesthesia Assessment: - Prior to the procedure, a History and Physical was performed, and patient medications and allergies were reviewed. The patient is competent. The risks and benefits of the procedure and the sedation options and risks were discussed with the patient. All questions were answered and informed consent was obtained. Patient identification and proposed procedure were verified by the physician. Mental Status Examination: normal. Prophylactic Antibiotics: The patient does not require prophylactic antibiotics. Prior Anticoagulants: The patient has taken no previous anticoagulant or antiplatelet agents. After reviewing the risks and benefits, the patient was deemed in satisfactory condition to undergo the procedure. The anesthesia plan was to use monitored anesthesia care (MAC). Immediately prior to administration of medications, the patient was re-assessed for adequacy to receive sedatives. The heart rate, respiratory rate, oxygen saturations, blood pressure, adequacy of pulmonary ventilation, and response to care were monitored throughout the procedure. The physical status of the patient was re-assessed after the procedure. After I obtained informed consent, the scope was passed under direct vision. Throughout the procedure, the patient's blood pressure, pulse, and oxygen saturations were monitored continuously. The Colonoscope was introduced through the anus and advanced to the terminal ileum. The colonoscopy was performed without difficulty. The patient tolerated the procedure well. The quality of the bowel preparation was good. Scope In: 10:12:48 AM Scope Withdrawal Time 0 hours 8 minutes 16 seconds Scope Out: 10:24:13 AM Total Procedure Duration Time 0 hours 11 minutes 25 seconds Findings: The perianal and digital rectal examinations were normal. Inflammation characterized by congestion (edema), erosions, friability and loss of vascularity was found in a continuous and circumferential pattern from the rectum to the transverse colon. The hepatic flexure, the ascending colon and the cecum were spared. This was mild in severity, and when compared to previous examinations, the findings are unchanged. Biopsies were taken with a cold forceps for histology. Verification of patient identification for the specimen was done. Estimated blood loss was minimal. The terminal ileum appeared normal. Biopsies were taken with a cold forceps for histology. Verification of patient identification for the specimen was done. Estimated blood loss was minimal. Impression: - Colitis. Inflammation was found from the rectum to the transverse colon. This was mild in severity, unchanged compared to previous examinations. Biopsied. - The examined portion of the ileum was normal. Biopsied. Recommendation: - Discharge patient to home. - Resume previous diet. - Continue present medications. - Await pathology results. - Repeat colonoscopy in 1 year for surveillance. Procedure Code(s): --- Professional --- 57912, Colonoscopy, flexible; with biopsy, single or multiple CPT copyright 2017 [employer]. All rights reserved. The codes documented in this report are preliminary and upon drier transfer car operator review may be revised to meet current compliance requirements. Andrea Watt DO 10/14/2022 10:29:25 AM This report has been signed electronically. Number of Addenda: 0 Note Initiated On: 10/14/2022 10:10 AM
--- NOTE | 2022-10-14 10:30 | OP.CCLET_ITS ---
10/14/2022 Bobby Rojo [address] [place] [address] Re : Colonoscopy procedure for Layla Bennett Dear Dr. Rojo This procedure was performed on Friday, October 14, 2022. My impressions and recommendations are as follows: Impressions : - Colitis. Inflammation was found from the rectum to the transverse colon. This was mild in severity, unchanged compared to previous examinations. Biopsied. - The examined portion of the ileum was normal. Biopsied. Recommendations : - Discharge patient to home. - Resume previous diet. - Continue present medications. - Await pathology results. - Repeat colonoscopy in 1 year for surveillance. My findings are described in the full procedure note, which is enclosed. If I can be of further assistance, please feel free to contact me at . Sincerely, Andrea Watt, 10/14/2022 10:29:25 AM This report has been signed electronically.
--- NOTE | 2022-10-14 10:38 | OP.EGD_ITS ---
Patient Name: Layla Bennett Procedure Date: 10/14/2022 9:54 AM Date of : 1960 Age: 61 Procedure: Upper GI endoscopy Indications: Heartburn, Pat's esophagus Providers: Andrea Watt DO Referring MD: Andrea Watt DO Medicines: Monitored Anesthesia Care Patient Profile: This is a 61 year old female. Refer to note in patient chart for documentation of history and physical. Patient has symptoms of chronic heartburn. Complications: No immediate complications. Procedure: Pre-Anesthesia Assessment: - Prior to the procedure, a History and Physical was performed, and patient medications and allergies were reviewed. The patient is competent. The risks and benefits of the procedure and the sedation options and risks were discussed with the patient. All questions were answered and informed consent was obtained. Patient identification and proposed procedure were verified by the physician in the pre-procedure area. Mental Status Examination: alert and oriented. Airway Examination: normal oropharyngeal airway and neck mobility. Respiratory Examination: clear to auscultation. CV Examination: normal. Prophylactic Antibiotics: The patient does not require prophylactic antibiotics. Prior Anticoagulants: The patient has taken no previous anticoagulant or antiplatelet agents. ASA Grade Assessment: II - A patient with mild systemic disease. After reviewing the risks and benefits, the patient was deemed in satisfactory condition to undergo the procedure. The anesthesia plan was to use monitored anesthesia care (MAC). Immediately prior to administration of medications, the patient was re-assessed for adequacy to receive sedatives. The heart rate, respiratory rate, oxygen saturations, blood pressure, adequacy of pulmonary ventilation, and response to care were monitored throughout the procedure. The physical status of the patient was re-assessed after the procedure. After obtaining informed consent, the endoscope was passed under direct vision. Throughout the procedure, the patient's blood pressure, pulse, and oxygen saturations were monitored continuously. The Colonoscope was introduced through the mouth, and advanced to the second part of duodenum. The upper GI endoscopy was accomplished without difficulty. The patient tolerated the procedure well. Scope In: 10:06:37 AM Scope Out: 10:10:29 AM Total Procedure Duration Time 0 hours 3 minutes 52 seconds Findings: The Z-line was irregular and was found 38 cm from the incisors. Biopsies were taken with a cold forceps for histology. Verification of patient identification for the specimen was done. Estimated blood loss was minimal. [place]-colored mucosa were present at 37 cm. The maximum longitudinal extent of these esophageal mucosal changes was 1 cm in length. Biopsies were taken with a cold forceps for histology. Verification of patient identification for the specimen was done. Estimated blood loss was minimal. The entire examined stomach was normal. The second portion of the duodenum was normal. Impression: - Z-line irregular, 38 cm from the incisors. Biopsied. - [place]-colored mucosa suspicious for short-segment Pat's esophagus. Biopsied. - Normal stomach. - Normal second portion of the duodenum. Recommendation: - Discharge patient to home. - Resume previous diet. - Continue present medications. - Await pathology results. - Repeat upper endoscopy in 1 year for surveillance based on pathology results. Procedure Code(s): --- Professional --- 01449, Esophagogastroduodenoscopy, flexible, transoral; with biopsy, single or multiple CPT copyright 2017 [employer]. All rights reserved. The codes documented in this report are preliminary and upon front end java developer review may be revised to meet current compliance requirements. Andrea Watt DO 10/14/2022 10:37:37 AM This report has been signed electronically. Number of Addenda: 0 Note Initiated On: 10/14/2022 9:54 AM
--- NOTE | 2022-10-14 10:39 | OP.CCLET_ITS ---
10/14/2022 Bobby Rojo [address] [place] [address] Re : Upper GI endoscopy procedure for Layla Bennett Dear Dr. Rojo This procedure was performed on Friday, October 14, 2022. My impressions and recommendations are as follows: Impressions : - Z-line irregular, 38 cm from the incisors. Biopsied. - [place]-colored mucosa suspicious for short-segment Pat's esophagus. Biopsied. - Normal stomach. - Normal second portion of the duodenum. Recommendations : - Discharge patient to home. - Resume previous diet. - Continue present medications. - Await pathology results. - Repeat upper endoscopy in 1 year for surveillance based on pathology results. My findings are described in the full procedure note, which is enclosed. If I can be of further assistance, please feel free to contact me at . Sincerely, Andrea Watt, 10/14/2022 10:37:37 AM This report has been signed electronically.
== END 2022-10-14 11:29 | disposition home or self-care (01) ==
LOC: EN 08:55 → AC 08:56
PROVIDERS: PCP Student in an Organized Health Care Education/Training Program; Referring Provider Student in an Organized Health Care Education/Training Program; Visit Provider Internal Medicine Gastroenterology
PROC: 0DJD8ZZ Inspection of Lower Intestinal Tract, Via Natural or Artificial Opening Endoscopic (ICD-10-PCS; CPT 45378; principal; 2022-10-14 09:55)
DX: K51.90 Ulcerative colitis, unspecified, without complications (principal); I10 Essential (primary) hypertension; K20.0 Eosinophilic esophagitis; K22.70 Barrett's esophagus without dysplasia; Z79.899 Other long term (current) drug therapy; Z87.19 Personal history of other diseases of the digestive system
CPT/HCPCS: 45380; 43239; 88305; 88313; J7120; J2405

== ENCOUNTER → 2022-10-16 | Outpatient (CLI) | payer OTHER, SELFPAY ==
[2022-10-16 13:09] LABS: Erythrocyte Sedimentation Rate 12 mm/hr (0-30)
[2022-10-16 13:11] LABS: Absolute Neutrophil Count 3.5 X10^3/uL (2.0-7.7); Basophil# 0.06 X10^3/uL; Eosinophil# 0.15 X10^3/uL; Eosinophils% 2.5 % (0-5); Hematocrit 41.6 % (37-47); Hemoglobin 13.4 g/dL (12.0-15.0); Lymphocyte % 29.7 % (19-41); Mean Corp Hgb Conc 32.2 g/dL (32-36); Mean Corpuscular Hgb 31.9 pg (27.0-32.0); Mean Platelet Vol. 10.1 fl (6.2-12.0); Monocyte# 0.51 X10^3/uL; Monocyte% 8.4 % (0-10); NRBC Flagged by Analyzer 0 % (0-5); Neutrophil # 3.52 X10^3/uL (2.7-7.7); Neutrophil % 58.1 % (47-70); Platelet Count 359 K/mm3 (150-450); RBC Distribution Width CV 13.3 % (11.6-14.6); RBC Distribution Width SD 48.4 fl (35.1-43.9); White Blood Count 6.1 K/mm3 (4.4-11.0)
[2022-10-16 14:06] LABS: ALB/GLOB Ratio 0.8 RATIO (0.9-2.4); AST(SGOT) 12 U/L (15-37); Alanine Aminotransfer ALT/SGPT 23 U/L (13-56); Albumin, Serum 3.3 g/dL (3.2-5.0); Alkaline Phosphatase 78 U/L (45-117); Anion Gap 7 (5-15); BUN 19 mg/dL (7-18); BUN/Creat Ratio 24.9 RATIO (10-20); CRP < 2.90 mg/L (0.0-3.0); Calcium,Total 9.3 mg/dL (8.5-10.1); Chloride 106 mmol/L (98-107); Creatinine, Serum 0.76 mg/dL (0.55-1.02); EST Glomerular Filtration Rate 82 mL/min (>60); Est Glom Filt Rate - Afr Amer 99 mL/min (>60); Globulin 4.2 g/dL (2.2-4.2); Glucose 93 mg/dL (74-106); LDH 143 U/L (84-246); Protein, Total 7.5 g/dL (6.4-8.2); Sodium Level 141 mmol/L (136-145)
[2022-10-17 13:08] LABS: Anti-Centromere B Ab 0.6 AI (0.0-0.9); Anti-Chromatin 0.4 AI (0.0-0.9); Anti-Jo <0.2 AI (0.0-0.9); Anti-Scleroderma-70 AB <0.2 AI (0.0-0.9); RNP Ab 1.9 AI (0.0-0.9); SJOGREN'S Anti-SS-A test < 0.2 AI (0.0-0.9); SJOGREN'S Anti-SS-B test < 0.2 AI (0.0-0.9); Smith Ab <0.2 AI (0.0-0.9)
[2022-10-17 15:08] LABS: Endomysial Antibody IgA Negative (Negative)
[2022-10-18 09:50] LABS: Anti-dsDNA Ab <1 IU/mL (0-9)
[2022-10-18 09:51] LABS: Immunoglobulin A 231 mg/dL (87-352); t-Transglutaminase IgA <2 U/mL (0-3)
[2022-10-18 18:08] LABS: Albumin 3.5 g/dL (2.9-4.4); Alpha-1-Globulins 0.3 g/dL (0.0-0.4); Alpha-2-Globulins 0.7 g/dL (0.4-1.0); Cytoplasmic Ab (C-ANCA) <1:20 titer (Neg:<1:20); Gamma Globulin 1.5 g/dL (0.4-1.8); Immunoglobulin A 217 mg/dL (87-352); Immunoglobulin E 95 IU/mL (6-495); Immunoglobulin G 1425 mg/dL (586-1602); Immunoglobulin M 129 mg/dL (26-217); PROEL- TOTAL PROTEIN 7.2 g/dL (6.0-8.5)
[2022-10-19 11:24] LABS: Perinuclear Ab (P-ANCA) >1:640 titer (Neg:<1:20)
== END | disposition home or self-care (01) ==
PROVIDERS: PCP Student in an Organized Health Care Education/Training Program; Visit Provider Internal Medicine Gastroenterology
DX: R19.7 Diarrhea, unspecified (principal)
CPT/HCPCS: 36415; 80053; 82784; 82785; 83516; 83615; 84165; 85025; 85652; 86140; 86225; 86235; 86255; 86256; 86334

== ENCOUNTER → 2022-10-17 | Outpatient (CLI) | payer OTHER, SELFPAY ==
[2022-10-22 11:10] LABS: Calprotectin, Stool 391 ug/g (0-120)
[2022-10-23 14:11] LABS: Pancreatic Elastase, Fecal 306 (>200)
== END | disposition home or self-care (01) ==
LOC: LABSPEC 10:43
PROVIDERS: PCP Student in an Organized Health Care Education/Training Program; Referring Provider Internal Medicine Gastroenterology; Visit Provider Internal Medicine Gastroenterology
DX: R19.7 Diarrhea, unspecified (principal); K58.9 Irritable bowel syndrome, unspecified
CPT/HCPCS: 82653; 83630; 83993; 87177; 87209; 87329; 87493; 87506

== ENCOUNTER → 2022-11-20 | Outpatient (CLI) | payer OTHER, SELFPAY ==
--- NOTE | 2022-11-20 10:27 | RAD_ITS ---
INDICATION: Left hand pain. Inflammatory polyarthropathy EXAMINATION/TECHNIQUE: X-RAY - LEFT XR Hand Min 3 Views. 3 views. COMPARISON: No prior left hand x-rays. Right hand x-rays November 20, 2022. FINDINGS: SOFT TISSUES: No soft tissue swelling or gas. No radiopaque foreign body. BONES/JOINTS: No acute fracture or dislocation. Advanced first CMC joint osteoarthritis change and first IP joint osteoarthritis change. Second through fifth digit DIP joint osteoarthritis changes. Small marginal osteophyte appearance of the fifth MCP joint. No sclerotic or destructive changes observed. RAD/Hand Min 3 Views IMPRESSION: No acute osseous injury. Osteoarthritis changes similar in appearance to the right hand. Electronically Signed: Sanchez Chicas MD at 19:47 EDT ,
--- NOTE | 2022-11-20 10:27 | RAD_ITS ---
STUDY: X-RAY - RIGHT HAND REASON FOR EXAM: Female, 62 years old. Inflammatory polyarthropathy. TECHNIQUE: 3 view(s) of the hand. COMPARISON: None. FINDINGS: Normal radiocarpal articulation. Normal distal radioulnar joint. Normal visualized carpal bones. Normal carpal articulations There is mild degenerative arthrosis of the carpometacarpal (CMC) articulation of the thumb. Normal second through fifth carpometacarpal joints. Normal metacarpi. Normal metacarpophalangeal joint of the thumb. Normal interphalangeal joint of the thumb. Normal proximal and distal phalanges of the thumb. Normal metacarpophalangeal joints of the second through fifth fingers. There is diffuse articular joint space narrowing of the proximal and distal interphalangeal joints of the second through fifth fingers, but without erosive changes or periarticular soft tissue swelling. Normal phalanges of the second through fifth fingers. The soft tissue structures are unremarkable. RAD/Hand Min 3 Views IMPRESSION: Mild degenerative changes of the hand and wrist. Electronically Signed: Juan Gonzalez DO at 17:11 EDT ,
[2022-11-20 11:28] LABS: EXAGEN MAILED SPECIMEN
[2022-11-20 12:06] LABS: Absolute Lymphocyte Count 2.47 X10^3/uL (0.83-4.51); Absolute Neutrophil Count 3.2 X10^3/uL (2.0-7.7); Basophil# 0.07 X10^3/uL; Basophil% 1.1 % (0-1); Eosinophil# 0.17 X10^3/uL; Eosinophils% 2.6 % (0-5); Hematocrit 44.1 % (37-47); Hemoglobin 14.3 g/dL (12.0-15.0); Lymphocyte # 2.47 X10^3/ul (0.83-4.51); Lymphocyte % 38.5 % (19-41); Mean Corp Hgb Conc 32.4 g/dL (32-36); Mean Corpuscular Hgb 32.4 pg (27.0-32.0); Mean Corpuscular Volume 99.8 fL (81-99); Monocyte# 0.52 X10^3/uL; Monocyte% 8.1 % (0-10); NRBC Flagged by Analyzer 0 % (0-5); Neutrophil # 3.18 X10^3/uL (2.7-7.7); Neutrophil % 49.5 % (47-70); Platelet Count 385 K/mm3 (150-450); RBC Distribution Width CV 13.1 % (11.6-14.6); RBC Distribution Width SD 48.5 fl (35.1-43.9); Red Blood Count 4.42 M/mm3 (4.2-5.4); White Blood Count 6.4 K/mm3 (4.4-11.0)
[2022-11-20 12:14] LABS: Color, Urine Yellow (Yellow); Glucose, Dipstick Normal (Normal); Ketone-Dipstick Negative (Negative); Leukocyte Esterase-Dipstick 500 /ul (Negative); Nitrite-Dipstick Negative (Negative); Occult Blood-Urine 50 /ul (Negative); Protein-Dipstick 15 mg/dl (Negative); Urine Bilirubin Dipstick Negative (Negative); Urine Clarity Sl. Cloudy (Clear); Urine Urobilinogen Normal (Normal)
[2022-11-20 12:19] LABS: Protein, Urine (Random) 21.5 mg/dL (<11.9); Protein:Creat Ratio 197 mg/g CRE (0-200)
[2022-11-20 13:08] LABS: ALB/GLOB Ratio 0.9 RATIO (0.9-2.4); AST(SGOT) 14 U/L (15-37); Alanine Aminotransfer ALT/SGPT 24 U/L (13-56); Albumin, Serum 3.6 g/dL (3.2-5.0); Alkaline Phosphatase 77 U/L (45-117); Anion Gap 7 (5-15); BUN 21 mg/dL (7-18); Calcium,Total 9.3 mg/dL (8.5-10.1); Chloride 105 mmol/L (98-107); Creatinine, Serum 0.72 mg/dL (0.55-1.02); EST Glomerular Filtration Rate 87 mL/min (>60); Est Glom Filt Rate - Afr Amer 105 mL/min (>60); Glucose 103 mg/dL (74-106); Protein, Total 7.6 g/dL (6.4-8.2); Sodium Level 137 mmol/L (136-145)
[2022-11-20 13:41] LABS: Hepatitis B Surface Antibody Reactive; Hepatitis B Surface Antigen Non-Reactive (Nonreactive); Hepatitis C Antibody Non-Reactive (Nonreactive)
[2022-11-27 17:07] LABS: HLA B27 Negative (.)
== END | disposition home or self-care (01) ==
LOC: MTLAB 10:25
PROVIDERS: PCP Student in an Organized Health Care Education/Training Program; Referring Provider Internal Medicine Rheumatology; Visit Provider Internal Medicine Rheumatology
DX: M06.4 Inflammatory polyarthropathy (principal); R76.8 Other specified abnormal immunological findings in serum; K52.839 Microscopic colitis, unspecified
CPT/HCPCS: 36415; 73130; 80053; 81002; 81374; 82570; 84156; 85025; 86706; 86803; 87340